=== PATIENT | male | born 1950 | race Caucasian/White ===

== ENCOUNTER → 2019-11-24 | Outpatient (CLI) | payer MEDICARE ==
[~2019-11-24] MED LIST: ALPR0.5T6 PO; [UNRECOGNIZED DRUG - CODE] PO
--- NOTE | 2019-11-26 11:04 | RADONC ---
RADIATION ONCOLOGY CONSULTATION NOTE DATE: 11/24/2019 CHART NUMBER: [id number] DIAGNOSIS: Prostate cancer. STAGE: IIB, [id number], grade group 2, [place] score 7 (3 - 4), initial PSA 6.5. ECOG PERFORMANCE STATUS: 0 CONSULTATION NOTE: Mr. 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 HISTORY OF PRESENT ILLNESS: The patient was in his usual state of health, but was found to have an elevated PSA which reached 6.5 on 08/09/2019. On 09/15/2019, the patient underwent prostatic needle biopsy, and pathology revealed a Clotilde score 7 (3-4) adenocarcinoma of the left side of the prostate. All samples on the left-sided were positive for malignancy and many of them had perineural invasion identified. The right side of the prostate showed chronic inflammation but no evidence of definitive malignancy. The patient has discussed his surgical and radiation options with his physicians at [facility] and has already decided he wishes to undergo external beam radiation therapy. He is scheduled for placement of his fiducial markers on December 20 as well as antiandrogen treatments. PAST MEDICAL HISTORY: The patient's past medical history is positive for a right nephrectomy and right rib resection in 1973 at the age of 23. He has had a vasectomy. He had a cardiac stent placed. He is a construction nail removed from his left hand and right rotator cuff surgery. He has a history of hypertension. ALLERGIES: The patient has no known drug allergies. SOCIAL HISTORY: The patient had smoked one pack of cigarettes per day since the age of 16. He reports that he stopped smoking after 36 years. He drinks four alcoholic beverages per day. FAMILY HISTORY The patient's family history is positive for a father with leukemia, maternal grandfather with some type of eye cancer, and paternal grandfather with prostate cancer. REVIEW OF SYSTEMS: The patient's review of systems is noncontributory. He denies standard nausea, vomiting, fevers, chills, night sweats, diplopia, headaches, anxiety or depression, anorexia, weight loss, visual disturbances, chest pain, urinary or bowel difficulties, bone pain, or neurological problems. PHYSICAL EXAMINATION: The patient is a well-developed, well-nourished male in no acute distress. HEENT exam is normocephalic, atraumatic. Extraocular movements are intact. There is no palpable cervical, supraclavicular, infraclavicular, axillary, or inguinal lymphadenopathy present. Lungs are clear to auscultation and percussion. Heart has a regular rate and rhythm. Abdomen is benign with no hepatosplenomegaly, masses, or tenderness. Rectal examination reveals a normal anal sphincter tone. There is a somewhat enlarged prostate with nodularity present on the left side. Skeletal examination reveals no tenderness to pressure or percussion of the bony skeleton. Extremities reveal no clubbing, cyanosis, or edema. Neurologic exam is grossly intact, as is the remainder of the physical examination. MEDICAL NECESSITY: IMRT/IGRT is clinically indicated for the highly conformal dose planning required. The target volume is in close proximity to critical structures, such as the rectum, bladder, small bowel, and femoral heads. The volume of interest must be covered with narrow margins to adequately protect immediately adjacent structures. The plan requires interpretation of complex testing such as CT localization. As noted above, special planning (IMRT) and localizing (IGRT) is required and essential to maximally protect sensitive normal tissue structures which cannot be accomplished using conventional 3-dimensional planning. ASSESSMENT: Clearly, the patient is a candidate for external beam radiation therapy, and I have so informed him. I have discussed in detail with the patient the potential benefits as well as possible acute and chronic sequelae of external beam radiation therapy. We discussed the logistics of treatment planning, simulation, and subsequent fractionated daily radiation treatments. I discussed androgen deprivation therapy with him and the placement of fiducial markers as well. In addition, we discussed his options such as surgery, but the patient is ready decided on external beam radiation therapy. We did discuss in detail his GPS score of 58, which was rather surprising and puts him at a higher risk for more aggressive disease. The patient is scheduled for placement of his fiducial markers on December 20, and we will be initiating simulation and treatment planning approximately 2-3 weeks following that. Of note, the patient lives in the town [facility] and, therefore, would prefer not to start radiation until after December anyway. This will allow less chance of severe weather during his long drive in. Thank you for allowing us to participate in the care of this very pleasant gentleman. If I could be of any further assistance or provide you with any information, please feel free to contact me at anytime. cc: MD Simeon Key MD Jay Sullivan, MD
== END ==
LOC: M ONCR 10:28
PROVIDERS: ATTEND Radiology Radiation Oncology
DX: C61 Malignant neoplasm of prostate (principal)

== ENCOUNTER → 2019-12-22 | Outpatient (CLI) | payer MEDICARE ==
--- NOTE | 2019-12-22 13:56 | REP ---
Whole body radionuclide bone scan: History: Prostate carcinoma. Question metastasis. The patient gives a history of pain in the right collarbone. No comparison imaging. Technique: 21.6 mCi technetium 99m MDP is injected and standard whole body bone scan imaging is acquired. Scintigraphic findings: There is degenerative facet uptake in the cervical facet joints bilaterally, right more so than left. There is osteoarthritic uptake in each wrist, right a little more prominent than left. There is uptake in the left kidney and in the urinary bladder. No right renal uptake is appreciated. Question right renal status. There is no evidence of skeletal metastatic disease. Impression: Absent right renal uptake, question status of the right kidney. Degenerative facet uptake in the cervical spine and osteoarthritic uptake in each wrist. No evidence to suggest skeletal metastatic disease. Electronically Signed by Hasmukh Esparza MD 12/22/2019 02:18 P
== END ==
LOC: M RAD 09:51
PROVIDERS: ATTEND Radiology Radiation Oncology
DX: C61 Malignant neoplasm of prostate (principal)
CPT/HCPCS: 78306; A9503

== ENCOUNTER → 2020-02-06 | Outpatient (RCR) | payer MEDICARE ==
[2020-01-16 11:42] LABS: BASO % 0.2 % (0.0-1.0); EOS % 0.1 % (0.0-3.0); HEMATOCRIT 40.8 % (42.0-52.0); HEMOGLOBIN 14.3 g/dl (13.5-17.5); LYMPH # 1.5 10^3/uL (1.5-5.0); LYMPH % 12.5 % (24.0-44.0); MEAN CORPUSCULAR HEMOGLOBIN 32.3 pg (27.0-33.0); MEAN CORPUSCULAR VOLUME 92.1 fl (80.0-96.0); MONO # 0.7 10^3/uL (0.0-0.8); MONO % 6.1 % (0.0-5.0); NEUTROPHILS # 9.7 10^3/uL (1.5-8.5); NEUTROPHILS % 80.6 % (36.0-66.0); PLATELET COUNT, AUTOMATED 213 10^3/uL (150-450); RED BLOOD COUNT 4.43 10^6/uL (4.30-6.10)
--- NOTE | 2020-01-17 11:29 | RADONC ---
RADIATION ONCOLOGY SIMULATION NOTE: DATE: 01/16/2020 CHART NUMBER: [id number] Ms. Mcgill was taken to the CT scan for CT simulation of his prostate field. CT was accomplished without difficulty or discomfort. Radiation treatment planning is underway and radiation treatments will begin subsequently. An immobilization device was created and will be used throughout the course of treatment. It was created without difficulty or discomfort. I was physically present throughout the course of CT simulation.
--- NOTE | 2020-01-29 14:35 | RADONC ---
RADIATION ONCOLOGY DATE: 01/29/2020 CHART NUMBER: [id number] Mr. Mcgill is presently at a dose of 720 cGy to his prostate and is tolerating treatments quite well at this point with no complaints related to his radiation therapy. He is having no urinary or bowel difficulties and no bone pain. REVIEW OF SYSTEMS: The patient's review of systems is noncontributory. Denies nausea, vomiting, fevers, chills, night sweats, diplopia, headaches, anxiety or depression, anorexia, weight loss, visual disturbances, chest pain, urinary or bowel difficulties, bone pain, or neurological problems. PHYSICAL EXAMINATION: The physical examination was deferred secondary to COVID-19 precautions. ASSESSMENT: The patient is tolerating treatments quite well and radiation will continue as scheduled.
--- NOTE | 2020-02-05 14:04 | RADONC ---
RADIATION ONCOLOGY PROGRESS NOTE DATE OF SERVICE: 02/05/2020 CHART NUMBER: [id number] Mr. Mcgill is presently at a dose of 1440 cGy to his prostate and seminal vesicles and was last treated on 02/02/2020. He did not come in today for treatment secondary to machine breakdown. As of Wednesday, the patient had been tolerating his treatments quite well with no difficulties related to his radiation therapy. The patient is scheduled to resume tomorrow if the machine is running.
== END ==
LOC: M ONCR 01-16 10:03
PROVIDERS: ATTEND Radiology Radiation Oncology
DX: C61 Malignant neoplasm of prostate (principal)

== ENCOUNTER → 2020-03-07 | Outpatient (RCR) | payer MEDICARE ==
--- NOTE | 2020-02-13 08:10 | RADONC ---
RADIATION ONCOLOGY PROGRESS NOTE DATE: 02/12/2020 CHART #: [id number] Mr. Mcgill is presently at a dose of 2340 cGy to his prostate and is tolerating treatments quite well at this point with no complaints related to his radiation therapy. He is having no significant urinary or bowel issues at this point. REVIEW OF SYSTEMS: The patient's review of systems is noncontributory. Denies nausea, vomiting, fevers, chills, night sweats, diplopia, headaches, anxiety or depression, anorexia, weight loss, visual disturbances, chest pain, urinary or bowel difficulties, bone pain, or neurological problems. PHYSICAL EXAMINATION: The patient's skin is in good condition with no evidence of moist or dry desquamation. The remainder of his physical exam remains unchanged. Mr. Mcgill is tolerating treatments quite well and radiation will continue as scheduled.
--- NOTE | 2020-02-19 11:42 | RADONC ---
RADIATION ONCOLOGY PROGRESS NOTE DATE: 02/09/2020 CHART NUMBER: [id number] PROGRESS NOTE: Mr. Mcgill is presently a dose of 3240 cGy to his prostate and overall is tolerating his treatments quite well with no significant difficulties related to his radiation therapy other than some slight increased urination and fatigue. He does have some discomfort in his hips. REVIEW OF SYSTEMS: The patient's review of systems is positive for some increased urinary frequency and hip discomfort as well as some fatigue but is otherwise noncontributory. Denies nausea, vomiting, fevers, chills, night sweats, diplopia, headaches, anxiety or depression, anorexia, weight loss, visual disturbances, chest pain, urinary or bowel difficulties, bone pain, or neurological problems. PHYSICAL EXAMINATION: The patient's skin is in good condition with no evidence of moist or dry desquamation. The remainder of his physical exam remains unchanged. Mr. Mcgill is tolerating treatments quite well and radiation will continue as scheduled.
--- NOTE | 2020-02-26 14:16 | RADONC ---
RADIATION ONCOLOGY PROGRESS NOTE DATE OF SERVICE: 02/26/2020 CHART NUMBER: [id number]. PROGRESS NOTE: Mr. Mcgill is presently at a dose of 4140 cGy to his prostate and seminal vesicles and is tolerating treatments quite well at this point with no complaints related to his radiation therapy. He is having no urinary or bowel difficulties. No bone pain. REVIEW OF SYSTEMS: The patient's review of systems is noncontributory. He denies nausea, vomiting, fevers, chills, night sweats, diplopia, headaches, anxiety or depression, anorexia, weight loss, visual disturbances, chest pain, urinary or bowel difficulties, bone pain, or neurological problems. PHYSICAL EXAMINATION: The patient's skin is in good condition with no evidence of moist or dry desquamation. The remainder of his physical examination remains unchanged. Mr. Mcgill is tolerating treatments quite well, and radiation will continue as scheduled.
--- NOTE | 2020-03-05 06:36 | RADONC ---
RADIATION ONCOLOGY PROGRESS NOTE DATE: 03/04/2020 CHART #: [id number] Mr. Mcgill is presently at a dose of 5040 cGy to his prostate and is tolerating treatments quite well at this point with no complaints related to his radiation therapy. He has no urinary or bowel difficulties. No significant urinary or bowel difficulties and no significant bone pain. REVIEW OF SYSTEMS: The patient's review of systems is positive for continued bilateral hip discomfort, but is otherwise generally noncontributory. Denies nausea, vomiting, fevers, chills, night sweats, diplopia, headaches, anxiety or depression, anorexia, weight loss, visual disturbances, chest pain, urinary or bowel difficulties, bone pain, or neurological problems. PHYSICAL EXAMINATION: The patient's skin is in good condition with no evidence of moist or dry desquamation. The remainder of his physical exam remains unchanged. Mr. Mcgill is tolerating treatments quite well and radiation will continue as scheduled.
== END ==
LOC: M ONCR 02-07 10:42
PROVIDERS: ATTEND Radiology Radiation Oncology
DX: C61 Malignant neoplasm of prostate (principal)

== ENCOUNTER 2020-03-26 10:39 | Outpatient (RCR) | payer MEDICARE ==
--- NOTE | 2020-03-14 08:43 | RADONC ---
RADIATION ONCOLOGY PROGRESS NOTE DATE: 03/11/2020 CHART NUMBER: [id number] PROGRESS NOTE: Mr. Mcgill is presently at a dose of 5940 cGy to his prostate and is tolerating treatments quite well at this point with no significant difficulties related to his radiation therapy. He is having no significant urinary or bowel problems or bone pain. REVIEW OF SYSTEMS: The patient's review of systems is noncontributory. Denies nausea, vomiting, fevers, chills, night sweats, diplopia, headaches, anxiety or depression, anorexia, weight loss, visual disturbances, chest pain, urinary or bowel difficulties, bone pain, or neurological problems. PHYSICAL EXAMINATION: The patient's skin is in good condition with no evidence of moist or dry desquamation. The remainder of his physical exam remains unchanged. Mr. Mcgill is tolerating treatments quite well and radiation will continue as scheduled.
--- NOTE | 2020-03-19 12:36 | RADONC ---
RADIATION ONCOLOGY PROGRESS NOTE DATE OF SERVICE: 03/18/2020 CHART NUMBER: [id number]. PROGRESS NOTE: Mr. Mcgill is presently at a dose of 6840 cGy to his prostate and is tolerating treatments quite well at this point with no complaints related to his radiation therapy. He is having no urinary or bowel difficulties. No bone pain. He does have some hip discomfort, which is actually stable. REVIEW OF SYSTEMS: The patient's review of systems is basically noncontributory. He denies nausea, vomiting, fevers, chills, night sweats, diplopia, headaches, anxiety or depression, anorexia, weight loss, visual disturbances, chest pain, urinary or bowel difficulties, bone pain, or neurological problems. PHYSICAL EXAMINATION: The patient's skin is in good condition with no evidence of moist or dry desquamation. The remainder of his physical exam remains unchanged. Mr. Mcgill is tolerating treatments quite well, and radiation will continue as scheduled.
--- NOTE | 2020-03-27 08:51 | RADONC ---
RADIATION ONCOLOGY PROGRESS NOTE DATE: 03/25/2020 CHART #: [id number] Mr. Mcgill is presently at a dose of 7740 cGy to his prostate and is tolerating treatments quite well at this point with no complaints related to his radiation therapy. He is having no urinary or bowel difficulties and no bone pain. REVIEW OF SYSTEMS: The patient's review of systems is noncontributory. Denies nausea, vomiting, fevers, chills, night sweats, diplopia, headaches, anxiety or depression, anorexia, weight loss, visual disturbances, chest pain, urinary or bowel difficulties, bone pain, or neurological problems. PHYSICAL EXAMINATION: The patient's skin is in good condition with no evidence of moist or dry desquamation. The remainder of his physical exam remains unchanged. Mr. Mcgill is tolerating treatments quite well and radiation is scheduled for completion tomorrow.
--- NOTE | 2020-03-28 13:47 | RADONC ---
RADIATION ONCOLOGY TREATMENT SUMMARY DATE: 03/26/2020 CHART NUMBER: [id number] DIAGNOSIS: Prostate cancer. STAGE: T2b, N0, M0 grade group 2, Clotilde score 7 (3-4), initial PSA 6.5. ECOG PERFORMANCE STATUS: 0 TREATMENT SUMMARY: Mr. Mcgill is a very pleasant 70-year-old white male with a diagnosis of a stage T2b, N0, M0, moderately to poorly differentiated, [place] score 7 (3-4) adenocarcinoma of the prostate with perineural invasion and an initial PSA level of 6.5 who presented to us for consideration of definitive external beam radiation therapy with IMRT/IGRT. We treated the patient to his prostate for a total of 7920 cGy delivered and 44 fractions of 187 cGy each over 61 elapsed days from 01/24/2020 through 03/26/2020. The patient's prostate was treated on a linear accelerator utilizing a 6 MV photon beam by IMRT/IGRT. We initially treated the prostate and seminal vesicles to a dose of 5400 cGy and subsequently delivered an additional 2520 cGy to the prostate itself bringing it once again to a total of 7920 cGy. Mr. Mcgill tolerated his treatments quite well and was able to complete therapy as prescribed without interruption. I have scheduled the patient to see me again in 1 month for further followup. He will also continue to be followed by his other physicians as well. cc: MD Simeon Key MD Jay Sullivan, MD
== END 2020-04-07 ==
LOC: M ONCR 10:39
PROVIDERS: ATTEND Radiology Radiation Oncology
DX: C61 Malignant neoplasm of prostate (principal)

== ENCOUNTER → 2020-05-01 | Outpatient (CLI) | payer MEDICARE ==
--- NOTE | 2020-05-05 15:26 | RADONC ---
RADIATION ONCOLOGY NOTE DATE: 05/01/2020 CHART NUMBER: [id number] DIAGNOSIS: Prostate CA. STAGE: T2b, N0, M0, [place] 7 (3+4). INITIAL PSA: 6.5. Mr. Mcgill is a 70-year-old gentleman who carries a diagnosis of prostate CA, T2b, N0, M0, [place] score of 7. Pretreatment PSA of 6.5. He completed radiation therapy on 03/26/2020. He has no specific complaints. He said he has nocturia 2-3 times, and his energy level is down. He said his diarrhea is controlled, and he said he has a pain in the leg probably due to radiation therapy, which I explained that it may be due to the position during the treatment radiation therapy. He has no other urinary problems. He denies dysuria, hematuria, incontinence. He has a hormone injection prior to treatment, and the next injection is scheduled in 6 months from the first injection, and his PSA on 04/18/2020 was reported to be less than 0.1 nanogram per mL. He was advised to continue followup care with urologist, and he was asked to return here in 3 months or sooner for followup. JACY
== END ==
LOC: M ONCR 10:56
PROVIDERS: ATTEND Radiology Radiation Oncology
DX: C61 Malignant neoplasm of prostate (principal)

== ENCOUNTER → 2020-09-02 | Outpatient (CLI) | payer MEDICARE ==
--- NOTE | 2020-09-02 12:28 | RADONC ---
Radiation Oncology Hx/FUP Radiation Oncology Hx/FUP Date of Service: Sep 02, 2020 Pt Identifier Surya Mcgill is a 70 year old male seen for a followup visit today at the department of radiation oncology for a history of unfavorable intermediate risk prostate cancer T2b Clotilde 3+4=7 PSA 6.5. He completed EBRT 79.2 Gy in 44 fractions 03/26/20. He has received ADT from his urologist, had a 6 month injection in June. This is planned to be the final injection, this will complete 12 months of ADT. Diagnosis/Treatment History Oncologic History PSA trend 08/21/20 PSA <0.1 04/18/20 <0.1 08/09/19 4.5 04/26/19 4.5 01/21/18 2.9 ng/ml Interval History Feels some chronic fatigue. Notes hip flexor weakness. Notes weight gain in the abdomen. Some hot flashes, not bothersome. Has 3x nocturia. Tried flomax, but had a rash from it so stopped. No GI complaints. No BRBPR. Thinks he has a urology appointment in the Spring[place]. Current Therapy ADT, last 6 month injection June 2020. This completes 1 year ADT Stage Unfavorable intermediate risk prostate cancer T2b Clotilde 3+4=7 PSA 4.5 Social History: Doesn't smoke Doesn't drink Allergies / Meds Home Meds Reported Medications Naproxen (Naprosyn) 125 Mg/5 Ml Oral.susp, 125 MG PO 11/24/19 Alprazolam (Alprazolam ER) 0.5 Mg Tab.er.24h, 0.5 MG PO DAILY for sleep MDD 1 Tablet(s) for 30 Days, #30 TAB 11/24/19 Physical Examination Vital Signs Wt 207 lb General Exam: Positive: Alert, Cooperative, No Acute Distress Eye Exam: Positive: PERRLA, EOMI ENT EXAM: Positive: Atraumatic, Pharynx Normal Neck Exam: Positive: Supple Chest Exam: Positive: Clear to auscultation, Normal air movement Heart Exam: Positive: Rate Normal, Regular Rhythm Breast Exam: Positive: Symmetric Bilaterally; Negative: Lumps or Masses (No gynecomastia) Extremity Exam: Negative: Edema Skin Exam: Positive: Nl turgor and temperature Neuro Exam: Positive: Normal Gait, Normal Speech, Cranial Nerves 3-12 NL Psych Exam: Positive: Mental status NL, Mood NL, Anxiety Diagnostic and Laboratory Diagnostic Review Radiologic images, relevant labs and pathology reports were personally reviewed and discussed with Mr. Mcgill. Assessment and Plan Impression Assessment Mr. Mcgill is a 70 year old male with a history of unfavorable intermediate risk prostate cancer T2b Clotilde 3+4=7 PSA 6.5. He completed EBRT 79.2 Gy in 44 fractions 03/26/20. He has received ADT from his urologist, had a 6 month injection in June. This is planned to be the final injection, this will complete 12 months of ADT. He is doing well. He has some sequelae of ADT including weight gain, hot flashes and loss of muscle mass. He has had his final injection. He has a follow up in place with urology but is unclear of the date. His PSA remains suppressed. I would like to split follow up with his urologist. To that end I will see him te ntatively next Summer, in the meantime he can find out when his urologist is seeing him and I can adjust my appointment optimally based on that follow up date. I think his PSA should be checked no more than q6m given his risk group. With respect to urinary side effects he has 3x nocturia, failed flomax due to rash. He does not want to try any additional meds at this time. He has no GI sequelae of RT at this time. Performance Status ECOG 0 Plan Follow up May 2021 with PSA testosterone Can adjust appointment based on when he sees urology next Mr. Mcgill was encouraged to call with questions or concerns in the interim period. JOHNATHAN CHÁVEZ MD Sep 02, 2020 12:28
== END ==
LOC: M ONCR 10:57
PROVIDERS: ATTEND General Practice
DX: C61 Malignant neoplasm of prostate (principal); R53.83 Other fatigue